=== PATIENT | male | born 1985 | race Caucasian/White ===

== ENCOUNTER 2022-12-27 13:17 | Inpatient (IN) | payer BC ==
[2022-12-27 14:09] VITALS: BMI 37.5
[2022-12-27] MEDS ORDERED: IBUPROFEN 600 MG TABLET (FP) PO PRN (17:23)
[2022-12-27] MEDS ORDERED: BENZOCAINE/MENTHOL (CHLORASEPTIC ) LOZENGE MM PRN (17:23)
[2022-12-27] MEDS ORDERED: NALOXONE HCL (KLOXXADO) 8 MG SPRAY NS PRN (17:23)
[2022-12-27] MEDS ORDERED: hydrOXYzine PAMOATE 25 MG CAPSULE (FP) PO PRN (17:23)
[2022-12-27] MEDS ORDERED: POLYETHYLENE GLYCOL (HEALTHYLAX) 3350 17 GM PACKET PO PRN (17:23)
[2022-12-27] MEDS ORDERED: DICYCLOMINE HCL 10 MG CAPSULE PO PRN (17:23)
[2022-12-27] MEDS ORDERED: MAGNESIUM HYDROX 2400MG/30ML ORAL SUSPENSION 30 ML CUP PO PRN (17:23)
[2022-12-27] MEDS ORDERED: BENZONATATE 200 MG CAPSULE PO PRN (17:23)
[2022-12-27] MEDS ORDERED: ACETAMINOPHEN 325 MG TABLET (FP) PO PRN (17:23)
[2022-12-27] MEDS ORDERED: LOPERAMIDE HCL 2 MG CAPSULE PO PRN (17:23)
[2022-12-27] MEDS ORDERED: BISMUTH SUBSALICYLATE 524 MG/30 ML PO PRN (17:23)
[2022-12-27] MEDS ORDERED: IBUPROFEN 400 MG TABLET (FP) PO PRN (17:23)
[2022-12-27] MEDS ORDERED: guaiFENesin 600 MG TABLET.ER (FP) PO PRN (17:23)
[2022-12-27] MEDS ORDERED: ONDANSETRON *ODT* 4 MG TABLET SL PRN (17:23)
[2022-12-27] MEDS ORDERED: MAG HYDROX/AL HYDROX/SIMETH 30 ML UNIT-DOSE CUP PO PRN (17:23)
[2022-12-27] MEDS ORDERED: NALOXONE HCL 0.4 MG/ML VIAL IM PRN (17:23)
[2022-12-27] MEDS: THIAMINE HCL 100 MG TABLET (FP) PO SCH (23:08)
[2022-12-27] MEDS: diazePAM 5 MG TABLET PO SCH (23:08)
[2022-12-27] MEDS: MELATONIN 5 MG TABLETS PO SCH (23:08)
[2022-12-28] MEDS: diazePAM 5 MG TABLET PO SCH ×4 (05:40→22:09)
[2022-12-28] MEDS: PRENATAL VITAMINS W/ FOLIC ACID TABLET (FP) PO SCH (11:04)
[2022-12-28] MEDS: METHOCARBAMOL 500 MG TABLET PO PRN (11:07)
[2022-12-28 11:42] LABS: HEMATOCRIT 41.2 % (35.4-49); HEMOGLOBIN 14.2 GM/dL (11.7-16.9); MCH 28.8 pg (25.7-33.7); MCHC 34.5 g/dl (32.0-35.9); MEAN CELL VOLUME 83.6 fl (80-96); MEAN PLT VOLUME 8.3 fl (7.5-11.1); PLATELET COUNT 271 10^3/uL (134-434); RBC 4.93 M/mm3 (4.00-5.60); RDW 14.9 % (11.9-15.9); WHITE BLOOD COUNT 9.4 K/mm3 (4.0-10.0)
[2022-12-28] MEDS: methaDONE HCL 10 MG TABLET PO SCH (12:04)
[2022-12-28 12:09] LABS: ALBUMIN 3.5 g/dl (3.4-5.0); BLOOD UREA NITROGEN 14.9 mg/dL (7-18); CALCIUM 9.3 mg/dL (8.5-10.1)
[2022-12-28 12:12] LABS: CREATININE 0.9 mg/dL (0.55-1.3)
[2022-12-28 12:14] LABS: BILIRUBIN,TOTAL 0.7 mg/dL (0.2-1); TOT PROT 7.2 g/dl (6.4-8.2)
[2022-12-28] MEDS: NICOTINE 10 MG CARTRIDGE (INHALER) IH PRN (17:55)
[2022-12-28] MEDS: MELATONIN 5 MG TABLETS PO SCH (22:09)
[2022-12-28] MEDS: THIAMINE HCL 100 MG TABLET (FP) PO SCH (22:09)
[2022-12-29] MEDS: diazePAM 5 MG TABLET PO SCH ×3 (05:35→21:21)
[2022-12-29] MEDS: methaDONE HCL 10 MG TABLET PO SCH (05:35)
[2022-12-29] MEDS: PRENATAL VITAMINS W/ FOLIC ACID TABLET (FP) PO SCH (10:50)
[2022-12-29] MEDS ORDERED: methaDONE HCL 10 MG TABLET PO ONE (11:24)
[2022-12-29] MEDS: NICOTINE 10 MG CARTRIDGE (INHALER) IH PRN (17:47)
[2022-12-29] MEDS: diazePAM 5 MG TABLET PO PRN (18:15)
[2022-12-29] MEDS: THIAMINE HCL 100 MG TABLET (FP) PO SCH (21:21)
[2022-12-29] MEDS: MELATONIN 5 MG TABLETS PO SCH (21:21)
[2022-12-30] MEDS: diazePAM 5 MG TABLET PO PRN ×2 (04:13→13:32)
[2022-12-30] MEDS: diazePAM 5 MG TABLET PO SCH ×2 (06:07→17:39)
[2022-12-30] MEDS: methaDONE HCL 10 MG TABLET PO SCH (06:07)
[2022-12-30] MEDS: PRENATAL VITAMINS W/ FOLIC ACID TABLET (FP) PO SCH (11:25)
[2022-12-30] MEDS: METHOCARBAMOL 500 MG TABLET PO PRN (19:34)
[2022-12-30] MEDS: NICOTINE 10 MG CARTRIDGE (INHALER) IH PRN (20:21)
[2022-12-30] MEDS: THIAMINE HCL 100 MG TABLET (FP) PO SCH (21:47)
[2022-12-30] MEDS: MELATONIN 5 MG TABLETS PO SCH (21:48)
[2022-12-31] MEDS ORDERED: diazePAM 5 MG TABLET PO ONE (06:00)
[2022-12-31] MEDS: methaDONE HCL 10 MG TABLET PO SCH (06:09)
[2022-12-31 09:29] VITALS: BP 110/67; PULSE 75; RESP 18; TEMP 98.8
[2022-12-31] MEDS: PRENATAL VITAMINS W/ FOLIC ACID TABLET (FP) PO SCH (10:52)
== END 2022-12-31 10:38 | disposition home or self-care (01) | DRG 773 ==
LOC: YASAS 13:17 → Y3N 17:23
PROVIDERS: ADMIT Allergy & Immunology; ATTEND Surgery
PROC: HZ2ZZZZ Detoxification Services for Substance Abuse Treatment (ICD-10-PCS; principal; 2022-12-27)
DX: F13.230 Sedative, hypnotic or anxiolytic dependence with withdrawal, uncomplicated (principal); F11.20 Opioid dependence, uncomplicated; F17.210 Nicotine dependence, cigarettes, uncomplicated; F41.9 Anxiety disorder, unspecified; F32.A Depression, unspecified; M54.50 Low back pain, unspecified; G89.29 Other chronic pain
CPT/HCPCS: 36415; 80053; 85027; 86780; 93005; 93010; C9803-CS; U0003; U0005